=== PATIENT | female | born 2000 | race Caucasian/White ===

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

== ENCOUNTER 2021-01-15 19:25 | Emergency (ER) | payer MEDICAID ==
[~2021-01-15] VITALS: Ht 165 cm; Wt 117.9 kg
[~2021-01-15 19:25] MED LIST changes: +PHEN-639 PO
--- NOTE | 2021-01-15 20:59 | ED Psychosocial ---
General Chief Complaint: Psych/Social Disorder Stated Complaint: PSYCH EVAL SUICIDAL IDEATIONS Nursing Triage Note: PT ARRIVES TO ER WITH MOM AND STEP FATHER WITHOUT KNOWLEDGE THAT SHE WAS THE ONE BEING CHECKED IN. PT STATES SHE THOUGHT SHE WAS HERE FOR HER MOM TO BE SEEN. PT STATES SHE IS NOT SUICIDAL OR HOMICIDAL OR HAVING ANY THOUGHTS OF HARMING SELF OR OTHERS AND HAS NOT VERBALIZED ANY HARM. PT STATES SHE HAS HAD PSYCH PROBLEMS IN THE PAST BUT NOT ANYTHING AT THIS TIME. PT HAS NO OTHER COMPLAINTS AT THIS TIME. Source: patient Exam Limitations: no limitations History of Present Illness Date Seen by Provider: Jan 15, 2021 Time Seen by Provider: 20:27 Initial Comments Patient the ER by private conveyance with mom and stepfather in checked in by her mother without her knowledge for suicidal statements. Patient states she is not made any suicidal statements and earlier in the week did say to her grandmother that while she is having a hard time getting along with her mother she at least does not having any suicidal thoughts. She suspects maybe this was taken out of context. Patient is tearful and upset because she thought she was coming here to support her mother who was checking into the ER for shortness of breath. Patient is adamant in her statement that she is not suicidal nor has she made any suicidal comments. She does not engage in any self-destructive behavior such as cutting or burning. She says she has recently seen [facility] outpatient for an ear infection and started antibiotic drops yesterday and it is getting better. She does not have any other medical concerns at this time. She denies having any interest in going inpatient for psychiatric hospitalization. She says she had to do that with some suicidal issues when she was 15 years old it also stemmed from her relationship with her mother. Allergies and Home Medications Allergies Coded Allergies: No Known Drug Allergies (Unverified , 12/22/20) Home Medications Nitrofurantoin Monohyd/M-Cryst 100 Mg Capsule, 1 TAB PO BID WITH MEALS Prescribed by: RENY PANTOJA on 12/22/20726 Phenazopyridine HCl 100 Mg Tablet, 100 MG PO TID Prescribed by: RENY PANTOJA on 12/22/20726 Patient Home Medication List Home Medication List Reviewed: Yes Review of Systems Constitutional: No chills, No diaphoresis EENTM: see HPI, ear pain; No ear discharge Respiratory: No cough, No short of breath Cardiovascular: No edema, No palpitations Gastrointestinal: No abdominal pain, No constipation, No diarrhea Genitourinary: No discharge, No dysuria All Other Systems Reviewed Negative Unless Noted: Yes Past Astuecb-Uwattq-Fberoa Hx Patient Social History Tobacco Use?: No Use of E-Cig and/or Vaping dev: No Substance use?: No Alcohol Use?: No Immunizations Up To Date Tetanus Booster (TDap): Unknown PED Vaccines UTD: No Seasonal Allergies Seasonal Allergies: Yes Past Medical History Surgeries: Yes (LEFT HIP; KIDNEY HYDRONEPHROSIS; PILONIDAL CYST) Orthopedic, Renal, Tonsillectomy Respiratory: No Currently Using CPAP: No Currently Using BIPAP: No Cardiac: No Neurological: No Last Menstrual Period: Jan 02, 2020 Reproductive Disorders: No Genitourinary: Yes (HYDRONEPHROSIS) Gastrointestinal: No 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 0.0oz. [id number]; 43.00 BMI Method:Actual General Appearance: WD/WN, no apparent distress HEENT: PERRL/EOMI, pharynx normal Neck: full range of motion, normal inspection Respiratory: normal breath sounds, no accessory muscle use Cardiovascular: normal peripheral pulses, regular rate, rhythm Gastrointestinal: normal bowel sounds, non tender, soft Neurologic/Psychiatric: alert, normal mood/affect, oriented x 3 Progress/Results/Core Measures Results/Orders My Orders Orders - WOODROW YANG Ekg Tracing (01/15/21 19:30) Vital Signs/I&O 01/15/21 01/15/21 20:12 22:52 Temp 37.0 37.0 Pulse 90 90 Resp 18 18 B/P (MAP) 128/74 (92) 128/74 (92) Pulse Ox 100 O2 Delivery Room Air Blood Pressure Mean: 92 Progress Progress Note #1: Time: 21:19 Progress Note Patient has no suicidal ideation or homicidal ideation. She is tearful and upset over being brought here for such and says that the majority of her problems seem to stem from her relationship with her mother and is dysfunctional nature. We did ask her if she had a friend or family she could go stay with and she says none of them are unstable footing either. She does not seem to be exhibiting any anhedonic behaviors stating that she has a gone out with friends even as late as yesterday to go see the [employer]. She is currently between jobs but does seem to be able to hold down a job. Since the majority of her crisis symptoms seem to be related to her housing situation we asked if she felt safe at home and she says not really since all that has happened in the week since she moved back with his strife and has made her cry at night. We gave her the phone number to [facility] and she is talking to them now. Progress Note #2: Time: 22:14 Progress Note Patient did get in contact with the [facility] and the plan is to follow-up tomorrow. She was encouraged to find someone to stay with janakight so she has reached out to a friend who said she will get back to her in a few minutes whether or not she can stay with her. The alternative is she would go back and stay with her parents. We will give the patient some more time to make communication. Progress Note #3: Time: 22:46 Progress Note The patient found a ride home with a friend and feels safe so were going to allow her to go home along with the number for the safe house Initial ECG Impression Date: Jan 15, 2021 Initial ECG Impression Time: 20:16 Initial ECG Rate: 83 Initial ECG Rhythm: Normal Sinus Initial ECG Intervals: Normal Initial ECG Impression: Normal, Nonspecific Changes Initial ECG Comparisson: No Previous ECG Available Comment Normal sinus rhythm without clinically relevant ST elevation or depression Departure Impression Primary Impression: Social discord Disposition: 01 HOME, SELF-CARE Condition: Stable Departure-Patient Inst. Decision time for Depature: 22:46 Referrals: [facility] (PCP/Family) Primary Care Physician Patient Instructions: NO INSTRUCTIONS GIVEN Add. Discharge Instructions: [facility] the [facility] at [phone] tomorrow if you are needing help from them. They also have access to counselors and can help in other ways. If you are having thoughts of self-harm, depression, anxiety or other worrisome thoughts that you would like to get help with then you can call [phone] and reach out to [facility] for help 24 hours / 7 days a week. All discharge instructions reviewed with patient and/or family. Voiced understanding. WOODROW YANG Jan 15, 2021 20:59
[2021-01-15 22:52] VITALS: BP 128/74
== END 2021-01-15 22:52 | disposition home or self-care (01) ==
LOC: EDUNIT# 19:25 → ER 19:27
DX: Z73.5 Social role conflict, not elsewhere classified (principal)
CPT/HCPCS: 93005